=== PATIENT | female | born 1995 | race American Indian/Alaskan Native ===

== ENCOUNTER 2023-12-19 23:51 | Emergency (ER) | payer OTHER ==
[~2023-12-19] VITALS: Ht 172.7 cm; Wt 92.0 kg
[~2023-12-19 23:51] MED LIST: KEFLEX500 MG PO; MACROBID 100 M100 MG PO; TAMIFLU75 MG PO; ZOFRAN ODT4 MG PO
[2023-12-20 00:30] LABS: BASOPHILS 0.4 % (0-2); EOSINOPHILS 2.6 % (0-6); HEMATOCRIT 23.8 % (35.0-50.0); HEMOGLOBIN 7.5 g/dL (12.0-18.0); LYMPHOCYTES 21.8 % (24-44); MCH 20.5 (27-36); MCHC 31.5 g/dl (30-36); MCV 65.1 fl (81-99); MONOCYTES 5.2 % (0-12); PLATELET COUNT 537 K/uL (140-440); RBC 3.65 M/ul (4.3-5.7); RDW 17.2 (10.5-15.0)
[2023-12-20] MEDS ORDERED: AMOX TR-K CLV1 EAC1 PO (02:09)
[2023-12-20] MEDS ORDERED: COLACE100 MG PO (02:12)
[2023-12-20] MEDS ORDERED: FERROUS SULFAT325 MG PO (02:12)
[2023-12-20] MEDS ORDERED: VITAMIN C500 M1 PO (02:12)
[2023-12-20] MEDS ORDERED: AMOXICILLIN/CLAVULANATE K 875 MG HOME.PACK PO ONE (02:15)
[2023-12-20 02:35] VITALS: BP 117/82
== END 2023-12-20 02:38 | disposition home or self-care (01) ==
LOC: ED 23:51
PROVIDERS: Family Medicine
DX: L76.34 Postprocedural seroma of skin and subcutaneous tissue following other procedure (principal); Z79.899 Other long term (current) drug therapy; Z91.040 Latex allergy status; Z91.030 Bee allergy status
CPT/HCPCS: 36415; 76705; 85025; 85060; 99283-25